=== PATIENT | female | born 1945 | race Hispanic/Latino ===

== ENCOUNTER 2019-12-07 14:47 | Emergency (ER) | payer OTHER ==
[2019-12-07] MEDS ORDERED: TETRACAINE HCL 0.5% 4ML OPTH ONE (16:37)
[2019-12-07] MEDS ORDERED: FLUORESCEIN SODIUM 1 MG/WRAP ONE (16:40)
--- NOTE | 2019-12-07 17:02 | ER ---
Nurse's Notes [facility] Name: Kayla Cannon Age: 74 yrs Sex: Female : 1945 Arrival Date: 12/07/2019 Time: 14:52 Bed 19 Private MD: Diagnosis: Conjunctival hemorrhage, right eye Presentation: 12/06 15:29 Chief complaint: Patient states: I scratched my R eye this morning, slept and when I ca1 got up this morning, it is all red. Denies vision loss on R eye. States, "it seems like there is something in there and it has gotten worse and hurts when I blink" Blood noted on the sclera. Coronavirus screen: Client denies travel out of the [place] in the last 14 days. At this time, the client does not indicate any symptoms associated with coronavirus-19. Ebola Screen: Patient negative for fever greater than or equal to 101.5 degrees Fahrenheit, and additional compatible Ebola Virus Disease symptoms Patient denies exposure to infectious person. Patient denies travel to an Ebola-affected area in the 21 days before illness onset. No symptoms or risks identified at this time. Mechanism of Injury: No Mechanism of Injury. The patient denies any loss of vision. Initial Sepsis Screen: Does the patient meet any 2 criteria? No. Patient's initial sepsis screen is negative. Does the patient have a suspected source of infection? No. Patient's initial sepsis screen is negative. Risk Assessment: Do you want to hurt yourself or someone else? Patient reports no desire to harm self or others. Onset of symptoms was December 07, 2019. 15:29 Method Of Arrival: Ambulatory ca1 15:29 Acuity: ALDO 2 ca1 Historical: - Allergies: 15:33 No Known Allergies; ca1 - Home Meds: 15:33 glimepiride 2 mg Oral tab 1 tab once daily [Active]; ca1 - PMHx: 15:33 Diabetes - NIDDM; ca1 - PSHx: 15:33 Hysterectomy; ca1 - Immunization history:: Adult Immunizations up to date. - Social history:: Smoking status: Patient denies any tobacco usage or history of. Screenin:07 Abuse screen: Denies threats or abuse. Nutritional screening: No deficits noted. Tuberculosis screening: No symptoms or risk factors identified. Fall Risk None identified. Assessment: 17:03 General: Appears in no apparent distress. Behavior is calm, cooperative, appropriate for age. Pain: Denies pain. Neuro: Level of Consciousness is awake, alert, obeys commands, Oriented to person, place, time, situation. Cardiovascular: Capillary refill < 3 seconds Patient's skin is warm and dry. Respiratory: Airway is patent Respiratory effort is even, unlabored, Respiratory pattern is regular, symmetrical. GI: No signs and/or symptoms were reported involving the gastrointestinal system. EENT: Eyes Sclera/Cornea are reddened in outer aspect of conjuctiva of right eye and inner aspect of conjuctiva of right eye Reports feels like something is in my eye. Vital Signs: 15:29 BP 163 / 86; Pulse 60; Resp 17 S; Temp 98.6(TE); Pulse Ox 98% on R/A; Weight 61.69 kg ca1 (R); Height 5 ft. 0 in. (152.40 cm) (R); Pain 0/10; 15:29 Body Mass Index 26.56 (61.69 kg, 152.40 cm) ca1 Visual Acuity: 17:15 Left Eye Visual acuity 20/20, ; Right Eye Visual acuity 20/25, ; Without Lenses; ED Course: 14:52 Patient arrived in ED. as 15:32 Triage completed. ca1 15:33 Arm band placed on right wrist. [facility] 16:07 Natanael Newsome NP is PHCP. pm1 16:07 Segundo Oconnor MD is Attending Physician. pm1 16:22 Carina Khan RN is Primary Nurse. 17:07 Patient has correct armband on for positive identification. Bed in low position. Call light in reach. Side rails up X 1. Administered Medications: 17:02 Drug: Tetracaine Drops 0.5 % 1 drops {Note: administred by WERNER Santoyo.} Route: Ophthalmic; Site: right eye; Outcome: 17:01 Discharge ordered by . pm1 17:43 Patient left the ED. Signatures: Archana Dial Patrick, NP WELT DRAWER pm1 Ewa Powers RN RN [facility] Carina Khan RN RN
--- NOTE | 2019-12-07 17:02 | EDPHYS ---
Physician Documentation [facility] Name: Kayla Cannon Age: 74 yrs Sex: Female : 1945 Arrival Date: 12/07/2019 Time: 14:52 Bed 19 Private MD: ED Physician Segundo Oconnor HPI: 12/06 17:02 This 74 yrs old Female presents to ER via Ambulatory with complaints of Eye pm1 Pain, Redness of Eye. 17:02 The patient is experiencing redness, The patient sustained Unknown. to the right eye, pm1 caused by an unknown mechanism. Onset: The symptoms/episode began/occurred this morning. Aggravated by nothing. Alleviated by nothing. Associated signs and symptoms: Pertinent negatives: visual changes. Severity of symptoms: in the emergency department the symptoms are worse. The patient has not experienced similar symptoms in the past. Patient woke up this AM and felt some irritation to her right eye. She poked at it with her finger at that time. Went to the restroom and noticed in the mirror that her eye was red on the lateral aspect of right eye. Came to the ER because the redness and continued to the lower medial aspect. Historical: - Allergies: 15:33 No Known Allergies; ca1 - Home Meds: 15:33 glimepiride 2 mg Oral tab 1 tab once daily [Active]; ca1 - PMHx: 15:33 Diabetes - NIDDM; ca1 - PSHx: 15:33 Hysterectomy; ca1 - Immunization history:: Adult Immunizations up to date. - Social history:: Smoking status: Patient denies any tobacco usage or history of. ROS: 17:02 Constitutional: Negative for fever, chills, and weight loss. pm1 17:02 Eyes: Positive for redness, Negative for blurry vision, vision loss, visual disturbance. 17:02 Eyes: Negative for pain. 17:02 All other systems are negative. Exam: 17:05 Constitutional: This is a well developed, well nourished patient who is awake, alert, pm1 and in no acute distress. 17:05 Head/Face: Normocephalic, atraumatic. pm1 17:05 Eyes: Periorbital structures: appear normal, no acute changes, Pupils: no acute changes, equal, round, and reactive to light and accomodation, Extraocular movements: intact throughout, Conjunctiva: subconjunctival hemorrhage(s), seen in the right eye, 6 to 9 o'clock. 17:05 Eyes: Corneas: abrasion, is not appreciated, foreign body, is not appreciated, a fluorescein strip employed to appreciate the findings, Sclera: abrasion, is not appreciated, Lids and lashes: appear normal. 17:05 Respiratory: Exam negative for respiratory distress, shortness of breath. Vital Signs: 15:29 BP 163 / 86; Pulse 60; Resp 17 S; Temp 98.6(TE); Pulse Ox 98% on R/A; Weight 61.69 kg ca1 (R); Height 5 ft. 0 in. (152.40 cm) (R); Pain 0/10; 15:29 Body Mass Index 26.56 (61.69 kg, 152.40 cm) ca1 Visual Acuity: 17:15 Left Eye Visual acuity 20/20, ; Right Eye Visual acuity 20/25, ; Without Lenses; MDM: 16:17 Patient medically screened. pm1 16:59 Data reviewed: vital signs. Data interpreted: Pulse oximetry: on room air is 98 %. pm1 Interpretation: normal. Counseling: I had a detailed discussion with the patient and/or guardian regarding: the historical points, exam findings, and any diagnostic results supporting the discharge/admit diagnosis, the need for outpatient follow up, As needed with ophthalmology , to return to the emergency department if symptoms worsen or persist or if there are any questions or concerns that arise at home. 12/06 16:19 Order name: Visual Acuity pm1 12/06 16:19 Order name: Eye Tray; Complete Time: 16:31 pm1 12/06 16:19 Order name: Fluoresene Opth strip; Complete Time: 16:31 pm1 Administered Medications: 17:02 Drug: Tetracaine Drops 0.5 % 1 drops {Note: administred by WERNER Santoyo.} Route: Ophthalmic; Site: right eye; Disposition: 12/07/19 17:01 Discharged to Home. Impression: Conjunctival hemorrhage, right eye. - Condition is Stable. - Discharge Instructions: Subconjunctival Hemorrhage. - Medication Reconciliation Form, Thank You Letter, Antibiotic Education, Prescription Opioid Use form. - Follow up: Emergency Department; When: As needed; Reason: Worsening of condition. Follow up: Private Physician; When: As needed; Reason: Recheck today's complaints, Continuance of care, Re-evaluation by your physician. - Problem is new. - Symptoms have improved. Addendum: 12/09/2019 06:59 Co-signature as Attending Physician, Segundo Oconnor MD I agree with the assessment and k dr plan of care. Signatures: Segundo Oconnor MD MD [facility] Natanael Newsome NP HEEL REDUCER pm1 Ewa Powers RN [facility]ER[facility] Carina Khan RN RN Corrections: (The following items were deleted from the chart) 12/06 17:43 17:01 12/07/2019 17:01 Discharged to Home. Impression: Conjunctival hemorrhage, right ah eye. Condition is Stable. Forms are Medication Reconciliation Form, Thank You Letter, Antibiotic Education, Prescription Opioid Use. Follow up: Emergency Department; When: As needed; Reason: Worsening of condition. Follow up: Private Physician; When: As needed; Reason: Recheck today's complaints, Continuance of care, Re-evaluation by your physician. Problem is new. Symptoms have improved. pm1
[2019-12-07 17:48] VITALS: BP 163/86; TEMP 98.6; O2SAT 98
== END 2019-12-07 17:43 | disposition home or self-care (01) ==
LOC: ER 14:47
DX: H11.31 Conjunctival hemorrhage, right eye (principal); E11.9 Type 2 diabetes mellitus without complications
CPT/HCPCS: 99283